=== PATIENT | female | born 1965 | race Hispanic/Latino ===

== ENCOUNTER 2019-08-06 22:23 | Emergency (ER) | payer BC ==
[2019-08-06 23:15] LABS: #Basophils 0.1 thou/uL (0.0-0.2); #Eosinphils 0.1 thou/uL (0.0-0.7); #Lymphocytes 1.9 thou/uL (1.20-3.40); #Monocytes 0.6 thou/uL (0.11-0.59); %Lymphocytes 19.6 % (21.0-51.0); %Monocytes 6.1 % (0.0-10.0); %Neutrophils 72.4 % (42.0-75.0); Hemoglobin 13.6 g/dL (12.0-16.0); Mean Corpuscular HGB CONC 34.5 g/dL (32.0-36.0); Mean Corpuscular Hemoglobin 31.4 pg (27.0-31.0); Mean Corpuscular Volume 91.1 fL (78.0-98.0); Mean Platelet Volume 8.9 fL (7.4-10.4); Platelet Count 236 thou/uL (130-400); Red Blood Cell (RBC) Count 4.32 mill/uL (4.20-5.40); White Blood Cell (WBC) Count 9.7 thou/uL (4.8-10.8)
--- NOTE | 2019-08-07 | RAD ---
EXAM: CHEST ONE VIEW HISTORY: Chest pain and upper abdominal pain. COMPARISON: None FINDINGS: The cardiac silhouette and pulmonary vasculature is within normal limits. The lungs are clear. The os seous structures are intact. IMPRESSION: No acute cardiopulmonary process.
[2019-08-07 00:32] LABS: Albumin 3.8 g/dL (3.5-5.0)
[2019-08-07 00:33] LABS: Chloride 105 mmol/L (98-107); Potassium 4.8 mmol/L (3.5-5.1); Sodium 137 mmol/L (136-145)
[2019-08-07 00:34] LABS: Calcium 8.9 mg/dL (7.8-10.44)
[2019-08-07 00:35] LABS: Globulin 4.1 g/dL (2.4-3.5); Glucose 131 mg/dL (70-105); Protein, Total 7.9 g/dL (6.0-8.3)
[2019-08-07 00:36] LABS: Anion Gap 14 mmol/L (10-20); Bilirubin, Total 0.3 mg/dL (0.2-1.2); Carbon Dioxide 23 mmol/L (22-29)
[2019-08-07 00:37] LABS: Alkaline Phosphatase 86 U/L (40-110)
[2019-08-07 00:38] LABS: Calc. Creatinine Clearance 0 mL/min (70-130); Estimated GFR-MDRD 78
[2019-08-07 00:39] LABS: BUN (Urea Nitrogen) 8 mg/dL (9.8-20.1)
[2019-08-07 00:40] LABS: AST (SGOT) 30 U/L (5-34)
[2019-08-07 00:41] LABS: ALT (SGPT) 30 U/L (8-55); Lipase 23 U/L (8-78)
== END 2019-08-07 03:08 | disposition home or self-care (01) ==
LOC: ERS 22:23
DX: R10.13 Epigastric pain (principal)
CPT/HCPCS: 36415; 71045; 80053; 83690; 84484; 85025; 93005